=== PATIENT | female | born 1970 | race Caucasian/White ===

== ENCOUNTER 2020-06-19 12:15 | Outpatient (REF) | payer BC, SELFPAY | END 2020-06-19 12:16 | disposition home or self-care (01) | LOC: HO.LAB 12:15 | PROVIDERS: Visit Provider Internal Medicine | DX: Z20.822 Contact with and (suspected) exposure to COVID-19 (principal) | CPT/HCPCS: 36415; C9803; U0003; U0005 ==

== ENCOUNTER 2022-07-15 11:35 | Outpatient (REF) | payer BC, SELFPAY ==
[2022-07-15 12:33] LABS: Influenza A PCR NEGATIVE (Negative); Influenza B PCR NEGATIVE (Negative); Resp Syncy Virus RNA Qual PCR NEGATIVE (Negative); SARS COV2 PCR INHOUSE NEGATIVE (Negative)
== END 2022-07-15 11:36 | disposition home or self-care (01) ==
LOC: HO.LNP 11:35
PROVIDERS: Visit Provider Internal Medicine
DX: Z20.822 Contact with and (suspected) exposure to COVID-19 (principal); R09.89 Other specified symptoms and signs involving the circulatory and respiratory systems
CPT/HCPCS: 0241U

== ENCOUNTER 2022-11-03 13:57 | Outpatient (AMB) | payer BC, SELFPAY ==
[2022-11-03 13:58] VITALS: BP 104/68; PULSE 50; O2SAT 99; BMI 20.5
--- NOTE | 2022-11-03 13:58 | MHC.PC.OV ---
Vital Signs 11/03/22 13:58 Height 5 ft 8 in Weight 135 lb BMI 20.5 BP 104/68 Blood Pressure Location Lt brachial Position Sitting Pulse 50 Pulse Source Pulse Oximeter Temp Source Skin Pulse Oximetry (%) 99 Oxygen Delivery Method Room Air Intake Visit Reasons: Annual PE Intake Note: Patient is here today for a physical. Scientific Advisor Required: No Allergies promethazine [Phenergan] Allergy (Unknown, Verified 11/03/22 14:06) extensive shaking Sulfa (Sulfonamide Antibiotics) Allergy (Unknown, Verified 11/03/22 14:06) Hives CT Dye Allergy (Unknown, Uncoded 11/03/22 14:06) Vomiting Medication List - Last Reconciled 11/03/22 by TRUONG Licona sertraline 100 mg PO DAILY 90 days Tobacco use date assessed: 11/03/22 Dental Screening Did you have a dental visit in the last 12 months?: Yes Did you have a dental problem in the last 6 months where you did not have access to dental care?: No Was dental information given to patient?: Patient has dentist HPI Annual PE HPI Details Patient is a 51-year-old female presents today for physical exam. Patient of Dr. Briggs. Medical history significant for anxiety which is stable with sertraline. Patient reports that she will be having mammogram tomorrow at [facility]. Patient did have normal Pap smear 03/2020 with [facility] gynecology, she has an upcoming hedis registered nurse rn appointment 11/2022. Up-to-date with colonoscopy 11/2021 which showed tubular adenoma with Dr. Hurst and repeat in 3 years. Patient reports that couple weeks ago she did have an episode where she woke up in the middle of the night feeling like her mouth is watery and having chest pressure and pressure sensation in her throat - at the time she was on vacation and she did use baking soda which improved her symptoms. She denies any more episodes of chest pain, she denies indigestion. No concerns at this visit. Signs and symptoms reviewed when to notify provider. [facility] Medical History (Updated 11/03/22 @ 14:12 by TRUONG Licona) Generalized anxiety disorder Rash Viral syndrome Surgical History (Updated 11/03/22 @ 14:25 by TRUONG Licona) History of bunionectomy History of colonoscopy History of foot surgery History of vaginal surgery Family History Mother No problems noted. Father Prostate cancer Other Mental health disorder Substance use disorder Social History Housing: House Alcohol intake: current Alcohol intake frequency: a few times a month Patient Tobacco Use Status: Former Tobacco user e-Cigarette/Vaping Use: Never Used Second Hand Smoke Exposure: No service: No Current occupational status: employed Cognitive needs: No Hearing needs: No Vision needs: Yes (reading glasses) Questionnaire PHQ-9 Over the last 2 weeks, how often have you been bothered by any of the following problems? 1. Little interest or pleasure in doing things: not at all 2. Feeling down, depressed, or hopeless: not at all 3. Trouble falling or staying asleep, or sleeping too much: not at all 4. Feeling tired or having little energy: not at all 5. Poor appetite or overeating: not at all 6. Feeling bad about yourself - or that you are a failure or have let yourself or your family down: not at all 7. Trouble concentrating on things, such as reading the newspaper or watching television: not at all 8. Moving or speaking so slowly that other people could have noticed. Or the opposite - being so fidgety or restless that you have been moving around a lot more than usual: not at all 9. Thoughts that you would be better off or of hurting yourself in some way: not at all Total score: 0 Depression Screening Interpretation: Negative 02671 - PHQ-9 Billing: Yes Source: Developed by Drs. Teddy Kilgore, Macie Baeza, Jono Webber and colleagues, with an educational shirley from [employer]. Thrive Questionnaire Date Thrive assessed: 11/03/22 I am a: Patient What is your living situation today?: I have a steady place to live Within the past 12 months, did the food you bought not last and you didn't have the money to get more?: Never true Within the past 12 months, did you worry whether your food would run out before you got money to buy more?: Never true Do you have trouble getting transportation to medical appointments?: No Do you have trouble paying your heating and electricity bill?: No Do you have trouble taking care of your child, family member or friend?: No Do you have trouble with day-to-day activities such as bathing, preparing meals, shopping, managing finances, etc.?: No Are you currently unemployed and looking for a job?: No Are you interested in more education?: No Currently or been in a relationship where the following occur: no concerns reported AUDIT C Alcohol Use Questionnaire (AUDIT-C) 1. How often do you have a drink containing alcohol?: Monthly or less 2. How many drinks containing alcohol do you have on a typical day when you are drinking?: 1 or 2 Total Score: 1 Score Reviewed/Action Taken: No RIKI-7 AMB Questionnaire RIKI-7 Date RIKI - 7 assessed: 11/03/22 Feeling nervous, anxious, or on edge: 0 = Not at all Not being able to stop or control worryin = Not at all Worrying too much about different things: 0 = Not at all Trouble relaxin = Not at all Being so restless that it is hard to sit still: 0 = Not at all Becoming easily annoyed or irritable: 0 = Not at all Feeling afraid as if something awful might happen: 0 = Not at all Total RIKI-7 score (0-4 normal; 5-9 mild; 10-14 moderate; 15-21 severe): 0 Source: Developed by Drs. Teddy Kilgore, Macie Baeza, Jono Webber and colleagues, with an educational shirley from [employer]. RIKI-7 Assessment Billing RIKI-7 Assessment Tool: RIKI-7 Assessment 74120 Review of Systems Const Denies body aches, Denies chills, Denies fever(s) and Denies headache(s) Eyes Denies change in vision ENT Denies dizziness, Denies otalgia, Denies headache(s), Denies nasal discharge, Denies sinus pain and Denies sore throat Card Denies chest pain, Denies edema, Denies lightheadedness and Denies dyspnea Resp Denies cough and Denies dyspnea GI Denies abdominal pain, Denies constipation, Denies diarrhea, Denies nausea and Denies vomiting Denies dysuria Musc Denies myalgias Skin/Breast Denies rash Neuro Denies dizziness and Denies headache(s) Physical exam (Primary Care) Vital Signs: Last Vital Signs Pulse 50 11/03/22 13:58 BP 104/68 11/03/22 13:58 Pulse Ox 99 11/03/22 13:58 Oxygen Delivery Method Room Air 11/03/22 13:58 BMI result Body Mass Index 20.5 Tobacco/Smoking Status: Tobacco use Status Tobacco use date assessed 11/03/22 11/03/22 14:00 Patient Tobacco Use Status Former Tobacco user 11/03/22 14:00 e-Cigarette/Vaping Use Never Used 11/03/22 14:00 PHQ-9: PHQ-9 Score PHQ-9: Total score 0 11/03/22 14:00 Depression Screening Interpretation: Negative Thrive Assessment: Date of Thrive Assessment Date Thrive assessed 11/03/22 11/03/22 14:00 Currently or been in a relationship where the following occur: no concerns reported Const General: cooperative and no acute distress Orientation/consciousness: patient oriented x3 HENMT Head: Yes normocephalic and Yes atraumatic Ears: TM's normal bilaterally Face and sinus: Yes sinuses nontender Mouth: oropharynx normal and moist mucous membranes Throat: Yes posterior oropharynx normal Eyes General: appearance normal, both eyes and all related structures Pupils: Equal, round and reactive pupils present EOM: EOMs intact bilaterally Neck Neck: Yes normal visual inspection, Yes full ROM and Yes no lymphadenopathy Thyroid: Thyroid normal Resp Effort & Inspection: normal respiratory effort and able to speak in complete sentences Auscultation: clear to auscultation bilaterally, no crackles, no rales, no rhonchi and no wheezes Cardio Rate: regular rate Rhythm: regular rhythm Heart sounds: S1 normal heart sound present, S2 normal heart sound present and no murmurs GI Palpation (GI): Soft to palpation, not firm, nontender, no guarding, not rigid and no hepatosplenomegaly Auscultation: normal bowel sounds General: No CVA tenderness Back/Spine/Pelvis Back: No CVA tenderness Skin General skin exam: no rashes or lesions noted Neuro General: patient oriented x3 Cranial nerves: Yes Equal, round and reactive pupils present Gait exam (Neuro): Normal gait present Extrem General: Yes full ROM and No edema Assessment and Plan Assessment & Plan (1) Adult general medical exam: Code(s): Z00.00 - Encounter for general adult medical examination without abnormal findings Plan: Repeat in 1 year Blood work ordered (2) Screening for breast cancer: Code(s): Z12.39 - Encounter for other screening for malignant neoplasm of breast Plan: Patient has an upcoming mammogram tomorrow at [facility] (3) Generalized anxiety disorder: Code(s): F41.1 - Generalized anxiety disorder Plan: Stable with sertraline 100 mg daily Plan Signs and symptoms reviewed when to notify provider or go to the emergency department. Orders: Orders Vitamin B12 and Folate Today Z00.00 - Encounter for general adult medical examination without abnormal findings Comprehensive [place]. Panel Fast Today Z00.00 - Encounter for general adult medical examination without abnormal findings Lipid Panel Today Z00.00 - Encounter for general adult medical examination without abnormal findings TSH reflex Free T4 Today Z00.00 - Encounter for general adult medical examination without abnormal findings Vitamin D 25-OH Total Today Z00.00 - Encounter for general adult medical examination without abnormal findings Complete Blood Count Auto Diff Today Z00.00 - Encounter for general adult medical examination without abnormal findings Coding Level of Care Code Est Pt Prev Care 40-64y(33060) Diagnoses Adult general medical exam Z00.00 Screening for breast cancer Z12.39 Generalized anxiety disorder F41.1 Additional Codes RIKI-7 Assessment Billing - RIKI-7 Assessment Tool: RIKI-7 Assessment 89121 ([id number])
== END 2022-11-03 14:20 | disposition home or self-care (01) ==
PROVIDERS: PCP Internal Medicine; Visit Provider Nurse Practitioner Family
DX: Z00.00 Encounter for general adult medical examination without abnormal findings (principal); Z12.39 Encounter for other screening for malignant neoplasm of breast; F41.1 Generalized anxiety disorder
CPT/HCPCS: 99396

== ENCOUNTER 2023-03-08 06:59 | Outpatient (REF) | payer BC, SELFPAY ==
[2023-03-08 07:10] LABS: MANUAL DIFF FLAG NO
[2023-03-08 07:44] LABS: Basophils Percent Auto 0.7 % (0-2); Eosinophils Absolute Auto 0.1 X10*3/uL (0.0-0.4); Eosinophils Percent Auto 2.6 % (0-4); Hematocrit 39.6 % (37.0-47.0); Hemoglobin 12.7 g/dl (12.0-16.0); Lymphocytes Percent Auto 32.2 % (20-40); Mean Corpuscular HGB Conc 32.1 g/dl (31.0-35.0); Mean Corpuscular Hemoglobin 30.1 pg (27.0-33.0); Mean Corpuscular Volume 93.8 fL (80.0-98.0); Mean Platelet Volume 11.5 fL (9.4-12.3); Monocytes Absolute Auto 0.3 X10*3/uL (0.1-1.2); Monocytes Percent Auto 9.4 % (2-11); Neutrophils Absolute Auto 1.7 x10*3/uL (2.0-8.3); Neutrophils Percent Auto 55.1 % (45-73); Platelet Count 150 X10*3/uL (160-400); Red Blood Count 4.22 X10*6/uL (4.20-5.50); Red Cell Distribution Width 13.8 % (11.0-16.0); White Blood Count 3.1 X10*3/uL (4.8-10.8)
[2023-03-08 08:21] LABS: Alanine Aminotransferase 17 U/L (0-31); Albumin Level 3.9 g/dL (3.5-5.0); Alkaline Phosphatase 49 U/L (39-117); Anion Gap 10 (12-20); Aspartate Amino Transferase 24 U/L (5-31); Bilirubin Total 0.3 mg/dL (0.0-1.0); Blood Urea Nitrogen 14 mg/dL (9-16); Calcium 8.9 mg/dL (8.4-10.2); Carbon Dioxide 29 mmol/L (22-29); Chloride 107 mmol/L (96-108); Cholesterol 187 mg/dL (<200); Estimated Glomerular Filt Rate > 60; Glucose Fasting 93 mg/dL (60-99); HDL Cholesterol 46 mg/dL (>40); LDL Cholesterol Calculated 123 mg/dL (<100); Sodium 142 mmol/L (135-145); Total Protein 6.7 g/dL (6.5-8.0); Triglycerides 91 mg/dL (<150)
[2023-03-08 08:29] LABS: TSH reflex Free T4 2.68 uIU/mL (0.32-4.0); Vitamin D 25-OH Total 25.8 ng/mL (>30)
[2023-03-08 08:39] LABS: Folate 8.9 ng/mL (> or = 4.0); Vitamin B12 459 pg/mL (200-900)
== END 2023-03-08 07:00 | disposition home or self-care (01) ==
LOC: HO.LAB 06:59
PROVIDERS: PCP Internal Medicine; Visit Provider Internal Medicine
DX: Z00.00 Encounter for general adult medical examination without abnormal findings (principal); Z20.2 Contact with and (suspected) exposure to infections with a predominantly sexual mode of transmission; E55.9 Vitamin D deficiency, unspecified; F41.1 Generalized anxiety disorder
CPT/HCPCS: 36415; 80053; 80061; 82306; 82607; 82746; 84443; 85025

== ENCOUNTER 2023-11-07 10:23 | Outpatient (AMB) | payer BC, SELFPAY ==
--- NOTE | 2023-11-07 10:27 | MHC.PC.OV ---
Vital Signs 11/07/23 10:28 Height 5 ft 8 in Weight 139 lb BMI 21.1 BP 102/62 Blood Pressure Location Lt brachial Position Sitting Pulse 61 Pulse Source Pulse Oximeter Pulse Oximetry (%) 98 Oxygen Delivery Method Room Air Intake Visit Reasons: Annual Exam Allergies promethazine [Phenergan] Allergy (Unknown, Verified 11/07/23 10:28) extensive shaking Sulfa (Sulfonamide Antibiotics) Allergy (Unknown, Verified 11/07/23 10:28) Hives CT Dye Allergy (Unknown, Uncoded 11/07/23 10:28) Vomiting Medication List - Last Reconciled 11/07/23 by Hardik Briggs MD cholecalciferol (vitamin D3) 50 mcg PO DAILY multivitamin 1 tab PO DAILY sertraline 100 mg PO DAILY 90 days Tobacco use date assessed: 11/07/23 Dental Screening Dental Screen Date: 11/07/23 Did you have a dental visit in the last 12 months?: Yes Did you have a dental problem in the last 6 months where you did not have access to dental care?: No Was dental information given to patient?: Patient has dentist HPI Annual Exam HPI Details 52-year-old female with a history of generalized anxiety disorder coming in for physical exam last seen in March 2021. Patient's mammogram is due this month discussed about colonoscopy in 2020. Review of the notes has been seen in [facility] Hematology-Oncology 05/14/2023. due to a new group of calcifications in the right breast October 2022 mammogram screening patient underwent stereo biopsy 11/16/2022 showing atypical ductal hyperplasia also 03/14/2023 aspiration of the cyst in left breast. Patient had the right breast excisional biopsy with radioactive seed localization breast cancer surveillance for the left breast warm compresses [facility] Medical History (Updated 11/07/23 @ 10:57 by Hardik Briggs MD) Viral syndrome Generalized anxiety disorder Rash Surgical History (Updated 11/03/22 @ 14:25 by TRUONG Licona) History of colonoscopy History of vaginal surgery History of bunionectomy History of foot surgery Family History (Updated 11/07/23 @ 10:55 by Hardik Briggs MD) Mother No problems noted. Father Prostate cancer Brother Prostate cancer Sister Breast cancer Paternal Aunt Breast cancer Other Mental health disorder Substance use disorder Social History (Updated 11/07/23 @ 10:56 by Hardik Briggs MD) Housing: House Alcohol intake: current Alcohol intake frequency: a few times a month Comment: 2 days in weekend 1-2 beers Patient Tobacco Use Status: Former Tobacco user Tobacco use type: Cigarette e-Cigarette/Vaping Use: Never Used Second Hand Smoke Exposure: No service: No Current occupational status: employed Cognitive needs: No Hearing needs: No Vision needs: Yes (reading glasses) Questionnaire PHQ-9 Over the last 2 weeks, how often have you been bothered by any of the following problems? 1. Little interest or pleasure in doing things: not at all 2. Feeling down, depressed, or hopeless: not at all 3. Trouble falling or staying asleep, or sleeping too much: not at all 4. Feeling tired or having little energy: not at all 5. Poor appetite or overeating: not at all 6. Feeling bad about yourself - or that you are a failure or have let yourself or your family down: not at all 7. Trouble concentrating on things, such as reading the newspaper or watching television: not at all 8. Moving or speaking so slowly that other people could have noticed. Or the opposite - being so fidgety or restless that you have been moving around a lot more than usual: not at all 9. Thoughts that you would be better off or of hurting yourself in some way: not at all Total score: 0 Depression Screening Interpretation: Negative Depression Screening Done: Yes 03660 - PHQ-9 Billing: Yes Source: Developed by Drs. Teddy Kilgore, Macie Baeza, Jono Webber and colleagues, with an educational shirley from [employer]. Thrive Questionnaire Date Thrive assessed: 11/07/23 I am a: Patient What is your living situation today?: I have a steady place to live Within the past 12 months, did the food you bought not last and you didn't have the money to get more?: Never true Within the past 12 months, did you worry whether your food would run out before you got money to buy more?: Never true Do you have trouble getting transportation to medical appointments?: No Do you have trouble paying your heating and electricity bill?: No Do you have trouble taking care of your child, family member or friend?: No Do you have trouble with day-to-day activities such as bathing, preparing meals, shopping, managing finances, etc.?: No Are you currently unemployed and looking for a job?: No Are you interested in more education?: No Currently or been in a relationship where the following occur: No concerns reported THRIVE Score: 0 AUDIT C Alcohol Use Questionnaire (AUDIT-C) 1. How often do you have a drink containing alcohol?: Monthly or less 2. How many drinks containing alcohol do you have on a typical day when you are drinking?: 1 or 2 Total Score: 1 Score Reviewed/Action Taken: No RIKI-7 AMB Questionnaire RIKI-7 Date RIKI - 7 assessed: 11/07/23 Feeling nervous, anxious, or on edge: 0 = Not at all Not being able to stop or control worryin = Not at all Worrying too much about different things: 0 = Not at all Trouble relaxin = Not at all Being so restless that it is hard to sit still: 0 = Not at all Becoming easily annoyed or irritable: 0 = Not at all Feeling afraid as if something awful might happen: 0 = Not at all Total RIKI-7 score (0-4 normal; 5-9 mild; 10-14 moderate; 15-21 severe): 0 Source: Developed by Drs. Teddy Kilgore, Macie Baeza, Jono Webber and colleagues, with an educational shirley from [employer]. RIKI-7 Assessment Billing RIKI-7 Assessment Tool: RIKI-7 Assessment 86288 Review of Systems Const Denies poor appetite and Denies weakness Eyes Denies no additional complaints ENT Reports Normal hearing present, Denies dizziness, Denies nasal congestion, Denies tinnitus and Denies sore throat Card Denies chest pain, Denies syncope, Denies rapid heart rate and Denies dyspnea Resp Denies cough and Denies dyspnea GI Denies change in stool character, Reports constipation, Denies diarrhea, Denies nausea and Denies vomiting Denies urinary frequency, Denies difficulty voiding and Denies dysuria Neuro Reports Normal hearing present, Denies confusion, Denies dizziness, Denies syncope and Denies weakness Psych Denies confusion Physical exam (Primary Care) Vital Signs: Last Vital Signs Pulse 61 11/07/23 10:28 BP 102/62 11/07/23 10:28 Pulse Ox 98 11/07/23 10:28 Oxygen Delivery Method Room Air 11/07/23 10:28 BMI result Body Mass Index 21.1 Tobacco/Smoking Status: Tobacco use Status Tobacco use date assessed 11/07/23 11/07/23 10:32 Patient Tobacco Use Status Former Tobacco user 11/07/23 10:32 Tobacco use type Cigarette 11/07/23 10:32 e-Cigarette/Vaping Use Never Used 11/07/23 10:32 PHQ-9: PHQ-9 Score PHQ-9: Total score 0 11/07/23 10:32 Depression Screening Interpretation: Negative Thrive Assessment: Date of Thrive Assessment Date Thrive assessed 11/07/23 11/07/23 10:32 Currently or been in a relationship where the following occur: No concerns reported Const General: No confusion Orientation/consciousness: No confusion HENMT Head: Yes normocephalic Ears: external ears normal and TM's normal bilaterally Face and sinus: Yes normal facial exam Mouth: moist mucous membranes Throat: Yes tonsils normal Eyes Conjunctivae: conjunctivae normal Pupils: Equal, round and reactive pupils present and Pupil accommodation reflex normal Direct Ophthalmoscopy: normal light reflex Neck Neck: No lymphadenopathy Thyroid: Thyroid normal Chest Chest palpation & inspection: normal inspection of the chest Resp Effort & Inspection: normal respiratory effort and no audible wheezes Auscultation: clear to auscultation bilaterally, no crackles, no wheezes and lung sounds not diminished Cardio Rate: regular rate Rhythm: regular rhythm Peripheral pulses: radial pulses present and dorsalis pedis present GI Palpation (GI): no masses Auscultation: normal bowel sounds and normoactive bowel sounds Rectal Exam - Female: deferred Skin General skin exam: no rashes or lesions noted Rashes: no rashes Neuro General: No confusion Cranial nerves: Yes Equal, round and reactive pupils present and Yes Normal hearing present Cognition (Neuro): normal cognition Gait exam (Neuro): Normal gait present Motor exam (neuro): 5/5 motor strength present throughout Deep tendon reflexes (DTR's): Right brachioradialis reflex intensity grade: 2+, Left brachioradialis reflex intensity grade: 2+, Right patellar reflex intensity grade: 2+ and Left patellar reflex intensity grade: 2+ Extrem General: No edema Assessment and Plan Assessment & Plan (1) Adult general medical exam: Code(s): Z00.00 - Encounter for general adult medical examination without abnormal findings Plan: Patient is advised to eat healthy, keep well hydrated, keep active and have adequate sleep. (2) Breast mass, left: Comment: 08/2020 [facility] Code(s): N63.20 - Unspecified lump in the left breast, unspecified quadrant Plan: Patient is being followed up by hematology oncology in [facility] (3) Atypical ductal hyperplasia of right breast: Comment: April 2023 excisional biopsy with radioactive seeding Code(s): N60.91 - Unspecified benign mammary dysplasia of right breast Plan: Patient follows up with Hematology-Oncology continue with surveillance (4) Generalized anxiety disorder: Code(s): F41.1 - Generalized anxiety disorder Plan: Continue with present medication (5) Colon cancer screening: Code(s): Z12.11 - Encounter for screening for malignant neoplasm of colon Orders: Orders Complete Blood Count Auto Diff Today N60.91 - Unspecified benign mammary dysplasia of right breast Free T4 (Free Thyroxine) Today N60.91 - Unspecified benign mammary dysplasia of right breast Vitamin B12 and Folate Today N60.91 - Unspecified benign mammary dysplasia of right breast Vitamin D 25-OH Total Today N60.91 - Unspecified benign mammary dysplasia of right breast Comprehensive Met. Panel Today N60.91 - Unspecified benign mammary dysplasia of right breast Thyroid Stimulating Hormone Today N60.91 - Unspecified benign mammary dysplasia of right breast Lipid Panel Today E78.00 - Pure hypercholesterolemia, unspecified, N60.91 - Unspecified benign mammary dysplasia of right breast Coding Level of Care Code Est Pt Prev Care 40-64y(30619) Diagnoses Adult general medical exam Z00.00 Breast mass, left N63.20 Atypical ductal hyperplasia of right breast N60.91 Generalized anxiety disorder F41.1 Colon cancer screening Z12.11 Additional Codes RIKI-7 Assessment Billing - RIKI-7 Assessment Tool: RIKI-7 Assessment 24152 ([id number])
[2023-11-07 10:28] VITALS: BP 102/62; PULSE 61; O2SAT 98; BMI 21.1
== END 2023-11-07 11:09 | disposition home or self-care (01) ==
PROVIDERS: PCP Internal Medicine; Visit Provider Internal Medicine
DX: Z00.00 Encounter for general adult medical examination without abnormal findings (principal); N60.91 Unspecified benign mammary dysplasia of right breast; F41.1 Generalized anxiety disorder; Z12.11 Encounter for screening for malignant neoplasm of colon
CPT/HCPCS: 99396